=== PATIENT | female | born 1940 | race Caucasian/White ===

== ENCOUNTER 2018-04-26 17:03 | Emergency (ER) | payer MEDICARE, OTHER ==
[2018-04-26] MEDS ORDERED: SERT-184 PO (17:18)
[2018-04-26] MEDS ORDERED: HYDR-2963 PO (17:18)
[2018-04-26] MEDS ORDERED: ONDANSETRON 4 MG ODT TABDP SL ONE (17:25)
[2018-04-26] MEDS ORDERED: MORPHINE 2 MG/ML SYR IM ONE (17:25)
[2018-04-26 18:00] VITALS: BP 164/88
[2018-04-26] MEDS ORDERED: HYDR-653 PO (18:00)
--- NOTE | 2018-04-26 18:02 | ER Report ---
History and Physical Time Seen By MD: 17:10 Hx. of Stated Complaint: Patient sent by private vehicle from [facility] for a broken wrist HPI/ROS CHIEF COMPLAINT: Left wrist fracture HISTORY OF PRESENT ILLNESS: Patient is a 77-year-old female coming by her , who presents the ED with complaint of a left wrist fracture. She was seen in [place], [place] at the local clinic and diagnosed with a distal radius fracture. She was sent here for further evaluation and possible reduction if needed. Primary orthopedics was consulted by [facility] and they advised to have the patient follow-up in 5 days. REVIEW OF SYSTEMS: Constitutional: No fever, no chills. Cardiovascular: No chest pain, no palpitations. Respiratory: No cough, no shortness of breath. Musculoskeletal: See history of present illness. Skin: No rashes. Neurological: No headache. Allergies: Coded Allergies: No Known Drug Allergies (Unverified , 04/26/18) Home Meds Reported Medications Sertraline Hcl (SERTRALINE HCL) 50 Mg Tablet, 0.5 TAB PO QDAY, TAB 04/26/18 Hydrochlorothiazide (HYDROCHLOROTHIAZIDE) 50 Mg Tablet, 1 TAB PO QDAY, TAB 04/26/18 Reviewed Nurses Notes: Yes Old Medical Records Reviewed: Yes Hx Substance Use Disorder: No Hx Alcohol Use: Yes (daily) Constitutional Vital Sign - Last 24 Hours 04/26/18 17:10 Temp 98.3 Pulse 82 Resp 20 B/P (MAP) 173/103 Pulse Ox 86 O2 Delivery Nasal Cannula Physical Exam General Appearance: The patient is alert, has no immediate need for airway protection and no signs of toxicity. Patient appears to be in mild distress.] Respiratory: There are no retractions, lungs are clear to auscultation. Cardiovascular: Regular rate and rhythm. Skin: Warm and dry, no rashes. Musculoskeletal: Neck is supple non tender. There is some swelling on the left radial aspect of the wrist. There is some tenderness with palpation in this area. Patient is slightly decreased range of motion due to the pain. She is able to make a fist. Radial pulses 2+ with normal capillary refill. Normal sensation. Appears to be neurovascularly intact. DIFFERENTIAL DIAGNOSIS: After history and physical exam differential diagnosis was considered for fracture, contusion, sprain Medical Decision Making ED Course/Re-evaluation ED Course Reviewed x-rays from [facility] which do reveal a distal radius fracture, Colles' type fracture. Discussed with King Antunez, ED, who advises to place in splint while hanging with gravity. Volar splint applied. We'll have her follow-up with orthopedic surgery in 2-3 days. Decision to Disposition Date: Apr 26, 2018 Decision to Disposition Time: 17:59 Depart Departure Latest Vital Signs Vital Signs Date Time Temp Pulse Resp B/P (MAP) Pulse Ox O2 Delivery O2 Flow Rate FiO2 04/26/18 17:10 98.3 82 20 173/103 86 Nasal Cannula Impression: Primary Impression: Fracture of left distal radius Condition: Stable Disposition: HOME OR SELF-CARE New Scripts Hydrocodone Bit/Acetaminophen (NORCO 5-325 TABLET) 1 Each Tablet 1 EACH PO Q4-6H PRN for PAIN, #12 TAB Prov: ALOK HAWLEY PA-C 04/26/18 Patient Instructions: Wrist Fracture in Adults (ED) Additional Instructions: Rest, ice, elevate. Follow-up with orthopedic surgery in 2-3 days. If having any worsening or concerning symptoms may return to the emergency department. Problem Qualifiers Primary Impression: Fracture of left distal radius Encounter type: initial encounter Fracture type: closed Fracture morphology: Colles' Qualified Codes: S52.532A - Colles' fracture of left radius, initial encounter for closed fracture ALOK HAWLEY PA-C Apr 26, 2018 18:02
== END 2018-04-26 18:15 | disposition home or self-care (01) ==
LOC: ER 17:10
DX: S52.532A Colles' fracture of left radius, initial encounter for closed fracture (principal)
CPT/HCPCS: 96372; 99283; J2270; Q0162; S0119